=== PATIENT | female | born 1965 | race Caucasian/White ===

== ENCOUNTER 2017-02-28 13:18 | Emergency (ER) | payer MEDICARE, MEDICAID ==
--- NOTE | 2017-02-28 14:07 | UC ---
Complaint Female HPI - HPI Summary HPI Summary: 51 year old male presents with complains of vertigo and lower back pain. - History Of Current Complaint Stated Complaint: LEFT SIDE BACK PAIN/URINARY/DIZZY Time Seen by Provider: 02/28/17 14:07 Hx Obtained From: Patient Hx Last Menstrual Period: pt had an ablasion in 2006 Onset/Duration: Sudden Onset Timing: Constant Severity Initially: Moderate Severity Currently: Moderate Pain Scale Used: 0-10 Numeric - 5 Character: Sharp Aggravating Factor(s): Movement Alleviating Factor(s): Position - Allergies/Home Medications Allergies/Adverse Reactions: Allergies Allergy/AdvReac Type Severity Reaction Status Date / Time Bupropion [From Wellbutrin] Allergy See Comment Verified 01/08/16 11:50 Calcium Channel Blockers Allergy Swelling Verified 02/28/17 14:18 Diltiazem [From Cartia XT] Allergy Swelling Verified 01/08/16 11:50 Sertraline [From Zoloft] Allergy Unknown Verified 01/08/16 11:50 Reaction Details Home Medications: Home Medications Amitriptyline TAB* [Elavil TAB*] 10 mg PO BEDTIME 02/28/17 [History Confirmed ] Methylcobalamin [B-12] 1,000 mcg PO DAILY 02/28/17 [History Confirmed 02/28/17] Multiple Vitamins W/ Minerals [Multi Adult Gummies] 1 chw PO 02/28/17 [History] PMH/Surg Hx/FS Hx/Imm Hx Previously Healthy: Yes - Surgical History Surgical History: Yes Surgery Procedure, Year, and Place: heart cath x2. uterine ablation. tubal ligation. deviated septum surgery. tonsillectomy. CHOLECYSTECTOMY; - Family History Known Family History: Positive: Hypertension - Social History Alcohol Use: None Substance Use Type: Marijuana Substance Use Comment - Amount & Last Used: last used 2 days ago Smoking Status (MU): Former Smoker Type: Cigarettes - Immunization History Most Recent Influenza Vaccination: Fall 2013 Most Recent Tetanus Shot: unsure Most Recent Pneumonia Vaccination: Has received, not sure when Review of Systems Constitutional: Negative Skin: Negative Eyes: Negative ENT: Negative Respiratory: Negative Cardiovascular: Negative Gastrointestinal: Negative Genitourinary: Negative Motor: Negative Neurovascular: Negative Musculoskeletal: Negative Neurological: Negative Psychological: Negative All Other Systems Reviewed And Are Negative: Yes Physical Exam Triage Information Reviewed: Yes Vital Signs Reviewed: Yes Eye Exam: Normal ENT Exam: Normal Dental Exam: Normal Neck exam: Normal Neck: Positive: 1 Respiratory Exam: Normal Cardiovascular Exam: Normal Abdominal Exam: Normal Musculoskeletal: Positive: Other: - lower back pain Neurological: Positive: Alert Psychological Exam: Normal Skin Exam: Normal Complaint Female Dx - Differential Dx/Diagnosis Provider Diagnoses: lower back pain. vertigo Discharge - Discharge Plan Condition: Stable Disposition: OTHER Discharge Disposition Comment: patient suggested to go to the er Patient Education Materials: Vertigo (ED) Referrals: Vick Colon MD [Primary Care Provider] - Additional Instructions: patient suggested to go to the er for severe vertigo.
[2017-02-28 14:33] VITALS: BP 122/88
--- NOTE | 2017-03-02 08:06 | UC ---
- Progress Note Progress Note: e coli found in urine. I will call in bactrim DS for 7 days.
--- NOTE | 2017-03-03 07:09 | UC ---
- Progress Note Progress Note: patient was sent to the er. was patient called ?
== END 2017-02-28 15:05 ==
LOC: UCCORT 13:18
DX: M54.5 Low back pain (principal); R42 Dizziness and giddiness; N39.0 Urinary tract infection, site not specified; B96.20 Unspecified Escherichia coli [E. coli] as the cause of diseases classified elsewhere; F12.90 Cannabis use, unspecified, uncomplicated; Z87.891 Personal history of nicotine dependence
CPT/HCPCS: 81003; 87077; 87086; 87186; 99212; G0463